=== PATIENT | female | born 1970 | race Hispanic/Latino ===

== ENCOUNTER 2018-12-10 21:35 | Inpatient (IN) | payer BC, SELFPAY ==
[2018-12-10 22:30] LABS: #Eosinphils 0.1 thou/uL (0.0-0.7); #Lymphocytes 1.5 thou/uL (1.20-3.40); #Monocytes 0.3 thou/uL (0.11-0.59); #Neutrophils 4.6 thou/uL (1.40-6.50); %Basophils 0.5 % (0.0-1.0); %Lymphocytes 23.1 % (21.0-51.0); %Monocytes 4.8 % (0.0-10.0); %Neutrophils 69.7 % (42.0-75.0); Hemoglobin 14.8 g/dL (12.0-16.0); MDiff Complete? YES; Macrocytosis SLIGHT = 6-15 cells (100X) (0-5/hpf); Mean Corpuscular HGB CONC 35.9 g/dL (32.0-36.0); Mean Platelet Volume 6.7 fL (7.4-10.4); Platelet Count 217 thou/uL (130-400); Platelet Morphology Comment Appears Adequate; RBC Distribution Width 12.3 % (11.5-14.5); White Blood Cell (WBC) Count 6.6 thou/uL (4.8-10.8)
[2018-12-10] MEDS ORDERED: Morphine 10 MG/ML VIAL ONE (22:41)
[2018-12-10 22:44] LABS: ALT (SGPT) 32 U/L (8-55); AST (SGOT) 94 U/L (5-34); Acetaminophen Less than 6.0 mcg/mL (10.0-30.0); Albumin 3.8 g/dL (3.5-5.0); Alcohol 190 mg/dL (Less than 10); Alkaline Phosphatase 109 U/L (40-110); Anion Gap 14 mmol/L (10-20); BUN (Urea Nitrogen) 9 mg/dL (7.0-18.7); Bilirubin, Total 0.5 mg/dL (0.2-1.2); Calc. Creatinine Clearance 0 mL/min (70-130); Calcium 8.1 mg/dL (7.8-10.44); Carbon Dioxide 21 mmol/L (22-29); Chloride 108 mmol/L (98-107); Estimated GFR-MDRD Greater than 90; Globulin 3.2 g/dL (2.4-3.5); Glucose 99 mg/dL (70-105); Salicylate Less than 8.0 mg/dL (15.0-30.0); Sodium 140 mmol/L (136-145)
--- NOTE | 2018-12-10 22:49 | CT ---
NONCONTRAST CT HEAD: 12/10/18 HISTORY: Patient fell backwards at baseball field from second set of bleachers. Head injury. Loss of conscious ness. COMPARISON: None. FINDINGS: There is increased density in the left frontal lobe and just superior to the level of the Sylvian fis sure related to subarachnoid hemorrhage. A small amount of subarachnoid hemorrhage is also seen near the vertex in the left frontal lobe. No additional intraparenchymal or extra-axial hemorrhage is appr eciated. There is no mass effect or midline shift present. Ventricular system is normal in sized, shape and position. There is no acute infarction identified. There is scalp soft tissue swelling seen in the left lateral frontoparietal region. No underlying sabine varial fracture is seen. The visualized mastoid air cells are clear. There is a tiny air fluid level in the right maxillary an trum and the right sphenoid sinus with mucosal thickening in the ethmoidal air cells. IMPRESSION: 1. Subarachnoid hemorrhage left cerebral hemisphere as described above. 2. Scalp hematoma left frontoparietal region. 3. Tiny amount of fluid in the visualized right maxillary antrum and sphenoid sinus. Above findings discussed with Dr. Whiting in the Emergency Department on 12/10/18 at 22:37 hours. POS: OFF
--- NOTE | 2018-12-10 22:52 | CT ---
NONCONTRAST CT CERVICAL SPINE: 12/10/18 HISTORY: Fell and patient fell backwards at baseball field from second set of bleachers. Head injury. Loss of consciousness. TECHNIQUE: Contiguous axial CT images are obtained through the cervical spine from the skull to the T1-2 level. Sagittal and coronal reformat images are provided. There are mild degenerative changes at C5-6 level. Vertebral body heights are within normal limits. No fracture or subluxation involving the cervical s pine. The prevertebral soft tissues are within normal limits. The visualized lung apices are clear. A mildly displaced fracture of the left clavicle is seen on the logistic manager image. IMPRESSION: 1. No fracture or subluxation involving the cervical spine. 2. Left clavicle fracture. POS: OFF
[2018-12-10 23:09] LABS: PTT 26.9 SEC (22.9-36.1); Prothrombin Time 12.7 SEC (12.0-14.7)
[2018-12-10] MEDS ORDERED: Promethazine HCl 25 MG/ML VIAL IM/IV PRN (23:25)
[2018-12-10] MEDS ORDERED: Dextrose 50% Abboject 50 ML SYRINGE SLOW IVP PRN (23:25)
[2018-12-10] MEDS ORDERED: Morphine 2 MG/ML SYRINGE SLOW IVP PRN (23:25)
[2018-12-10] MEDS ORDERED: Ondansetron PF 4 MG/2 ML Vial IVP PRN (23:25)
[2018-12-10] MEDS ORDERED: hydrALAZINE 20 MG/ML VIAL SLOW IVP PRN (23:25)
[2018-12-10] MEDS ORDERED: Dextrose 5% in Water 1,000 ML IV PRN (23:25)
[2018-12-10] MEDS ORDERED: traMADol HCl 50 MG TAB PO PRN ×2 (23:30)
[2018-12-11 00:33] LABS: Bacteria/HPF None Seen HPF (None Seen); Bilirubin Negative (Negative); Blood, Urine 1+ (Negative); Clarity Clear (Clear); Glucose, Urine (Dipstick) Normal (Negative); Leukocyte Negative Leu/uL (Negative); Nitrite Negative (Negative); Protein, Urine (Dipstick) Negative (Neg-Trace); Squamous Epithelial 0-3 HPF (0-3); Urobilinogen Normal mg/dL (Less than 2); WBC/HPF 0-3 HPF (0-3)
[2018-12-11 00:34] LABS: Pregnancy Test - Urine (BHCG) Negative (Negative); Pregu Control Background? CLEAR/WHITE (CLR/WHITE); Pregu Control Bar Appear? YES (CONTROL BAR); Specific Gravity 1.014 (1.002-1.036)
[2018-12-11 01:04] LABS: Amphetamine Not Detected (NotDetected); Barbiturates Screen Not Detected (NotDetected); Benzodiazepine Screen Detected (NotDetected); Cocaine Metabolite Screen Not Detected (NotDetected); Medtox Control Line Valid? VALID (VALID); Medtox Reader # READER 4; Methadone Not Detected (NotDetected); Methamphetamine Not Detected (NotDetected); Opiate Screen Detected (NotDetected); Oxycodone Screen Not Detected (NotDetected); Phencyclidine (PCP) Not Detected (NotDetected); THC/Cannabinoid Screen Not Detected (NotDetected); Tricyclic Screen Detected (NotDetected)
--- NOTE | 2018-12-11 02:17 | HP ---
TRAUMA SURGEON: Alex Wilkins MD CONSULTING PHYSICIANS: 1. Aryan Salazar MD, Neurosurgery. 2. Marques Gunter MD, Orthopedic Surgery. HISTORY OF PRESENT ILLNESS: The patient is a 48-year-old female, who presented to the emergency department via EMS after a fall from the second step of bleachers. The patient reported she got up with her family to change locations and she fell. She did have a loss of consciousness. Denies anticoagulation use. She has been drinking beer today. She was able to ambulate to the ambulance after a brief loss of consciousness. She reported head pain, neck pain, and left-sided clavicular pain on my evaluation. GCS was 15. Gross motor and sensation were intact. She denied numbness and tingling in her left upper extremity. Denied weakness in her extremities. REVIEW OF SYSTEMS: All additional 10-point review of systems negative except as indicated above. PAST MEDICAL HISTORY: Graves disease, status post thyroidectomy, sciatica and depression. MEDICATIONS: 1. Levothyroxine. 2. Zoloft. 3. Flexeril. PAST SURGICAL HISTORY: Thyroidectomy in 2007, appendectomy, and cholecystectomy. SOCIAL HISTORY: The patient reports drinking daily. She drinks about 5 ounces of alcohol. However, this evening she was drinking beers, reports vaping daily. No recent history of drug use. ALLERGIES: NO KNOWN DRUG ALLERGIES. PHYSICAL EXAMINATION: PRIMARY SURVEY: Airway intact. Adequate breath sounds bilaterally. 2+ pulses in the bilateral radials, femorals, and DPs. GCS 15. Gross motor and sensation are intact. No lacerations, bruising, or external bleeding. SECONDARY SURVEY: HEAD: Normocephalic and atraumatic. No gross palpable skull deformities or tenderness. EYES: Pupils 3-2, equal, round, reactive to light bilaterally. ENT: No hemotympanum. No epistaxis. No septal hematoma. Midface stable to manipulation. No blood in the oropharynx. Dentition is intact. No anterior neck injury/crepitus/tenderness. C-SPINE: No step-offs or deformity, tenderness, C-collar in place. CHEST: Left-sided clavicular tenderness with mild swelling. No abrasions or ecchymosis noted. Equal chest movement. ABDOMEN: Soft, nontender, nondistended. PELVIS: Stable to palpation, nontender. No abrasions or ecchymosis. RECTAL: Deferred. GENITOURINARY: Deferred. EXTREMITIES: No gross deformities. No abrasions or ecchymosis noted. 2+ pulses in bilateral radials, femorals, and DPs. BACK/SPINE: No step-offs or deformities. No tenderness to palpation of the thoracic or lumbar spine. No abrasions or ecchymosis noted. NEUROLOGIC: 5/5 strength in bilateral lifter/driver, plantar flexion, and dorsiflexion. Gross normal sensation x4 extremities. LABORATORY FINDINGS: White count 6.6, hemoglobin 14.8, hematocrit 41.3, platelets 217. INR 1.0. Sodium 140, potassium 3.0, chloride 108, carbon dioxide 21, BUN 9, creatinine 0.64, glucose 99, phosphorus 3.0, magnesium 2.0. UA negative. Urine negative. Plasma alcohol 190. DIAGNOSTIC FINDINGS: CT of the brain demonstrates left frontal subarachnoid hemorrhage. CT of the C-spine demonstrates no acute abnormality. Chest x-ray and x-ray of the left clavicle are pending. ASSESSMENT: 1. Status post fall from second step on bleachers. 2. Left frontal subarachnoid hemorrhage. 3. Left clavicle fracture. 4. Acute alcohol intoxication. 5. Acute hypokalemia. 6. History of Graves disease, depression, and sciatica. PLAN: The patient will be admitted to the [facility] for q.2 hours neuro checks. The patient will receive a repeat head CT in the morning. Dr. Salazar has been consulted and will see the patient. We will closely monitor her GCS and consider rescanning if there is a decline. She will also receive 1 L of LR in the emergency department followed by maintenance IV fluids. She will be n.p.o. We will follow up formal reads of the chest x-ray and clavicular x-ray. We will consult Orthopedic Surgery in the morning for the left clavicle fracture. In the meantime, we will place her in a sling and she will be nonweightbearing. Due to her daily alcohol use, we will start the patient on Serax tomorrow along with folic acid, thiamine and multivitamins. The patient also had C-spine tenderness. She is intoxicated, so we will re-evaluate her cervical spine tomorrow when she is sober and has received pain medications. This patient was discussed with Dr. Wilkins before this dictation. Job ID: [id number]
[2018-12-11] MEDS: Acetaminophen 1,000 MG in Premix Bag 1 BAG IVPB SCH ×2 (05:32→09:49)
[2018-12-11] MEDS: Sodium Chloride 0.9% 1,000 ML IV SCH ×2 (05:39→09:49)
[2018-12-11 06:15] VITALS: BMI 41.9
[2018-12-11 06:17] VITALS: BP 141/98
--- NOTE | 2018-12-11 08:18 | CON ---
DATE OF CONSULTATION: 12/11/2018 This is Aurelia Greenwood PA-C dictating a report for Marques Gunter MD. REQUESTING PHYSICIAN: Trauma Services. CONSULTING PHYSICIAN: Marques Gunter MD REASON FOR CONSULTATION: Left clavicle fracture. HISTORY OF PRESENT ILLNESS: This is a 48-year-old female, who presented to the Emergency Department by way of EMS after a fall from the second step of some bleachers while watching her son's baseball game. She states that she slipped on a jalapeno that fell off her nachos. The patient denied any loss of consciousness, but workup in the Emergency Department revealed a left clavicle fracture. We have been consulted for this reason. Currently at bedside, she reports pain with some movement of the left upper extremity. States that she is left-hand dominant. Denies any numbness or tingling. Denies any other orthopedic complaints at this time. PAST MEDICAL HISTORY: Significant for Graves disease, status post thyroidectomy, sciatica, and depression. PAST SURGICAL HISTORY: Thyroidectomy in 2007, appendectomy, and cholecystectomy. 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 She reports drinking alcohol daily. She also vapes daily. No recent history of drug use. ALLERGIES: NO KNOWN DRUG ALLERGIES. FAMILY HISTORY: Noncontributory. REVIEW OF SYSTEMS: A 10-point review of systems conducted and otherwise negative except for stated above. PHYSICAL EXAMINATION: VITAL SIGNS: Temperature 96.9, pulse of 112, respiratory rate of 19, O2 saturation of 97% on room air, and blood pressure of 141/98. GENERAL: The patient is awake and alert. She is in no apparent distress. She is currently in the IMCU and lying supine in bed. She has a sling to the left upper extremity. She is in no apparent distress. Pleasant and cooperative with exam today. HEENT: Head is normocephalic and atraumatic. NECK: Supple. Trachea midline. Breathing nonlabored. EXTREMITIES: The left upper extremity was evaluated. There is a sling noted. The patient is able to move her shoulder, elbow, and wrist without any difficulty. She is tender to palpation over the left clavicle. Skin is intact overlying the fracture site. No ecchymosis or lesions on the skin noted. Distal neurovascular status intact. Handgrip is 5/5. Other extremities were evaluated, no obvious injuries or deformities are noted. RADIOGRAPHIC IMAGING: Reviewed today including clavicle x-rays on the left side show a minimally displaced midshaft clavicle fracture. No evidence of shortening. These were reviewed with Dr. Gunter. ASSESSMENT: Left clavicle fracture status post fall. PLAN: At this time, our plan is to be nonsurgical. X-ray show minimal displacement with no evidence for shortening. We will plan to treat her in a sling. She may remove this while sleeping, if she is comfortable. She will wear while she is up and moving around. She currently states she really does not have much pain and is able to move her arm about. I advised no overhead motions and no lifting with this arm while we allowed it to heal. She will follow up in Orthopedic Clinic in 3 to 4 weeks for followup evaluation and new x-rays. Plan of care was discussed with the patient at this time and she verbalized understanding. Job ID: [id number]
[2018-12-11] MEDS ORDERED: Famotidine 20 MG TAB PO SCH (09:00)
[2018-12-11] MEDS ORDERED: Polyethylene Glycol 3350 17 GM Packet PO SCH (09:00)
[2018-12-11] MEDS ORDERED: Oxazepam 10 MG CAP PO SCH (09:00)
[2018-12-11] MEDS ORDERED: Multivitamin W/ Minerals 1 TAB PO SCH (09:00)
[2018-12-11] MEDS ORDERED: Senokot S 8.6-50 MG TAB PO SCH (09:00)
[2018-12-11] MEDS ORDERED: Folic Acid 1 MG TAB PO SCH (09:00)
[2018-12-11] MEDS ORDERED: Thiamine 100 MG TAB PO SCH (09:00)
[2018-12-11] MEDS ORDERED: Famotidine/PF 20 mg/2ml Vial SLOW IVP SCH (09:00)
--- NOTE | 2018-12-11 09:01 | RAD ---
LEFT CLAVICLE TWO VIEWS: HISTORY: Left chest pain post trauma. FINDINGS: There is a mildly oblique fracture involving the middle one-third of the left clavicle with plate sep aration of the fracture fragments. No additional fracture is seen. A cervical spine collar overlies t he visualized cervical spine. IMPRESSION: Obliquely oriented, mildly fracture middle one-third left clavicle. POS: OFF
--- NOTE | 2018-12-11 09:02 | RAD ---
PORTABLE AP CHEST: Date: 12/10/18 HISTORY: Left chest pain post trauma. FINDINGS: Cervical spine collar overlies the upper chest. Cardiac silhouette and pulmonary vasculature are with in normal limits. Lungs are clear without pneumothorax or pleural effusion identified. There is no co nsolidation seen. There is an obliquely oriented fracture involving the middle 1/3 left clavicle. IMPRESSION: 1. No acute cardiopulmonary process. 2. Fracture left clavicle. POS: OFF
[2018-12-11] MEDS ORDERED: Cyclobenzaprine 10 MG TAB PO PRN (09:15)
--- NOTE | 2018-12-11 09:38 | CT ---
PRELIMINARY REPORT/[facility]/EMERGENCY AFTER HOURS PROCEDURE: PROCEDURE INFORMATION: Exam: CT Head Without Contrast Exam date and time: 12/11/2018 4:44 AM Clinical history: 48 years old, female; Condition or disease; Patient HX: F/u traumnatic brain injury , sah TECHNIQUE: Imaging protocol: Computed tomography of the head without contrast. COMPARISON: CT Brain WO Con 12/10/2018 10:24 PM FINDINGS: Brain: Unchanged small volume of subarachnoid hemorrhage along the left convexity. No mass effect or midline shift. Ventricles: No ventriculomegaly. Bones/joints: No acute fracture. Sinuses: Trace bilateral maxillary and sphenoid sinuses fluid. Mastoid air cells: Visualized mastoid air cells are well aerated. Soft tissues: Left left convexity scal hematoma. IMPRESSION: No significant interval change. Thank you for allowing us to participate in the care of your patient. Dictated and Authenticated by: Elle Wood MD 12/11/2018 5:37 AM Central Time ([place] & [place]) FINAL REPORT CT BRAIN WITHOUT CONTRAST: Date: 12/11/18 IMPRESSION: I agree with the preliminary report given by Maria Del Rosario. POS: [facility]
[2018-12-11] MEDS: traMADol HCl 50 MG TAB PO SCH ×2 (09:53→15:24)
--- NOTE | 2018-12-11 10:34 | CON ---
DATE OF CONSULTATION: 12/11/2018 SUBJECTIVE: The patient is seen and examined. I agree with Glenda Richardson's evaluation of 12/10/2018. The patient is a 48-year-old woman, who fell last night. CT scan reveals left perisylvian traumatic subarachnoid hemorrhage. This is stable on followup CT scan. She has other orthopedic injuries. OBJECTIVE: NEUROLOGIC: The patient is neurologically intact. IMPRESSION AND PLAN: Traumatic subarachnoid hemorrhage, stable clinically and radiographically. She can be mobilized for dismissal. No neurosurgical intervention is planned. I will arrange a 4-week followup head CT. Job ID: [id number]
--- NOTE | 2018-12-11 10:44 | CON ---
DATE OF CONSULTATION: 12/11/2018 HISTORY OF PRESENT ILLNESS: The patient is a 48-year-old female, who presented to the emergency department per EMS after a mechanical fall on a set of bleachers. The patient did have positive LOC at that time. She was evaluated in the ER with a noncontrast CT of the head which is notable for a small area of traumatic subarachnoid hemorrhage in the left frontoparietal region as well as the left sylvian fissure. There is no mass effect or midline shift. CT of her cervical spine was negative for acute injuries, but she was complaining of some pain initially, so she was, therefore, placed in an [place] collar. She denied any anticoagulant use. The patient was intoxicated during the event, but otherwise had a GCS of 15, and gross motor and sensation were intact. The repeat CT this morning is stable, just slight evolution of the prior bleed. This morning, she is also nontender over the neck and has no complaints of neck pain. She was additionally found to have a left clavicle fracture, and she was placed in a sling, and Orthopedics has been consulted for this injury. PAST MEDICAL HISTORY: Graves disease, status post thyroidectomy; depression; and chronic back pain. PAST SURGICAL HISTORY: Thyroidectomy, appendectomy, and cholecystectomy. SOCIAL HISTORY: The patient is a daily drinker. She drinks approximately 5 ounces of EtOH daily. She uses e-cigarettes. She does not use any drugs. ALLERGIES: NO KNOWN DRUG ALLERGIES. PHYSICAL EXAMINATION: VITAL SIGNS: This morning, temperature is 97.8, heart rate is 112, respirations are 19, she is 97% on room air, BP is 141/98. HEENT: Head, normocephalic and atraumatic. Eyes; PERRLA. Extraocular movements are intact. ENT; oral mucosa is pink, intact, and moist. She has normal voice. NECK: Cervical collar is in place. I removed this. She had no tenderness of the C-spine. No meningismus or nuchal rigidity. Therefore, the C-collar was removed. CARDIAC: Regular rate and rhythm. CHEST: Symmetric chest expansion. No evidence of dyspnea. MUSCULOSKELETAL: She is tender over the left clavicle region, but otherwise has free active range of motion of all extremities. Symmetric pulses. No obvious deformities in the distal extremities. BACK: Nontender to palpation. NEUROLOGIC: A and O x4. No focal neurologic deficits are appreciated. ASSESSMENT AND PLAN: This is a 48-year-old female, status post mechanical fall, who was found to have a traumatic subarachnoid hemorrhage in the left frontoparietal region as well as along the left sylvian fissure. This is stable on followup CT imaging. Additionally, this morning, she has no complaints of neck pain. Her CT of her cervical spine was negative, and I have cleared her cervical collar at approximately 7 a.m., this morning. At this point, Neurosurgery has no plans for acute neurosurgical intervention. The patient should avoid any anticoagulants, aspirin, and NSAIDs. Plan should be to advance her diet and mobilize appropriately to dismissal to home as long as there are no plans for acute surgical intervention with her clavicle with Orthopedics. Please reach out to Neurosurgery for additional questions or concerns. Job ID: [id number]
[2018-12-11 11:36] VITALS: TEMP 97.2
[2018-12-11] MEDS ORDERED: Acetaminophen 500 MG TAB PO SCH (12:00)
[2018-12-11] MEDS ORDERED: Gabapentin 300 MG CAP PO SCH (15:00)
--- NOTE | 2018-12-11 20:36 | DIS ---
DATE OF ADMISSION: 12/11/2018 DATE OF DISCHARGE: 12/11/2018 This is Maribel Veram NP dictating a report for Edouard Woodard DO. DISCHARGE ATTENDING: Edouard Woodard DO ADMITTING ATTENDING: Alex Wilkins MD CONSULTS: 1. Neurosurgery, Dr. Salazar. 2. Orthopedic surgery, Dr. Gunter. PROCEDURES: 1. On 12/10/2018, brain CT demonstrates left frontal subarachnoid hemorrhage. CT of C-spine demonstrates no acute abnormality. Chest x-ray, impression, no acute cardiopulmonary process. There is an obliquely oriented fracture involving the middle 1/3 left clavicle. 2. Clavicle x-ray, obliquely oriented, mildly fracture middle 1/3 left clavicle. 3. Repeat brain CT on 12/11/2018, impression, unchanged small volume of subarachnoid hemorrhage along the left convexity. No mass effect or midline shift. PRIMARY DIAGNOSES: 1. Status post fall from 2nd step on bleachers, left frontal subarachnoid hemorrhage, stable. 2. Left clavicle fracture. 3. Acute alcohol intoxication. 4. Hypokalemia, resolved. SECONDARY DIAGNOSES: Graves disease, depression, sciatica. DISCHARGE MEDICATIONS: 1. Flexeril 10 mg p.o. 3 times a day as needed, #30. 2. Gabapentin 300 mg p.o. 3 times a day as needed, #30. 3. Tramadol 50 mg 1-2 tablets as needed for pain. 4. Xanax 0.5 mg p.o. as needed. 5. Synthroid 150 mcg p.o. daily. 6. MiraLAX as needed. 7. Zoloft 100 mg p.o. daily. 8. Ambien 10 mg p.o. at bedtime as needed. DISCONTINUED MEDICATIONS: There were no discontinued medications. HISTORY OF PRESENT ILLNESS AND HOSPITAL COURSE: This is a 48-year-old female, who presented to the emergency room via EMS after a fall from a 2nd step on bleachers. The patient did have a positive loss of consciousness. The patient denies any long-term anticoagulation use. The patient does admit to drinking daily and admit to drinking several beers before the accident. The patient was able to ambulate to the ambulance after she had the brief loss of consciousness after falling. The patient did report some head pain and neck pain and left-sided clavicle pain. The patient's GCS remained 15 in the emergency room and during her hospital course. The patient's motor and sensation remained intact in all extremities. The patient was admitted to the [facility] for frequent neuro checks. Neurosurgery was consulted and also Orthopedic Surgery was consulted. The patient was started on Serax due to her daily alcohol use along with folic acid, thiamine, and multivitamins. The patient's repeat CT scan this morning was stable. On the day of discharge, the patient was examined by Dr. Woodard. The patient had moderate amount of left clavicle pain and the patient's pain regimen was increased. The patient was able to tolerate a regular diet and the patient was able to ambulate without any dizziness or complications. The patient's vital signs were stable on the day of discharge and the patient's exam including cardiopulmonary, GI, neuro exam was unremarkable. The patient was deemed stable for discharge home. The patient was given head injury instructions and was told to refrain from working for approximately 2 to 3 weeks. The patient has been instructed to avoid alcohol use and NSAID use. DISPOSITION: Stable. DISCHARGE INSTRUCTIONS: 1. Location: Home. 2. Diet: Regular diet. 3. Activity: Orthopedic limitations, nonweightbearing, do not raise left arm, sling when up ambulating, may remove sling at night for sleeping. 4. Followup: Follow up with Dr. Salazar in 3 to 4 weeks with a repeat head CT. Follow up with Dr. Gunter in 3 to 4 weeks as directed. Follow up with primary care physician as needed. No need to follow up with Trauma Services. Please call for any questions. Job ID: [id number]
--- NOTE | 2018-12-16 21:45 | PQF ---
Sana Yang VINCENT U [id number] CLINICAL DOCUMENTATION CLARIFICATION FORM: POST DISCHARGE Addendum to original discharge summary date: ____ Late entry note date: __ DATE: 12/16/18 ATTN: Edouard Woodard Please exercise your independent, professional judgment in responding to the clarification form. Clinical indicators are provided on the bottom of this form for your review Please check appropriate box(s): Duration [ x] Concussion with loss of consciousness (30 min or less) [ ] Concussion with loss of consciousness (31 min to 59 min) [ ] Concussion with loss of consciousness (1 hour to 5 hours 59 min) [ ] Concussion with loss of consciousness (6 hours to 24 hours) [ ] Concussion with loss of consciousness (>24 hours with return to pre- existing conscious level) [ ] Concussion with loss of consciousness (>24 hours without return to pre- existing conscious level) [ ] Concussion with loss of consciousness (>24 hours with return to pre- existing conscious level with patient surviving) [ ] Concussion with loss of consciousness (Any duration with due to brain injury prior to regaining consciousness) [ ] Other diagnosis [ ] Unable to determine For continuity of documentation, please document condition throughout progress notes and discharge summary. Thank You. CLINICAL INDICATORS - SIGNS/ SYMPTOMS / LABS H&P p1 12/11 presented to ED via EMS after a fallf rom second step of bleachers H&P p1 12/11 She did have a loss of consciouness H&P p1 12/11 She reported head pain, neck pain and left-sided clavicular pain H&P p1 12/11 GCS of 15 H&P p1 12/11 CT of brain demonstrates left frontal subarachnoid hemorrhage RISK FACTORS H&P p3 12/11 Left frontal subarachnoid hemorrhage H&P p3 12/11 s/p fall from second step on bleachers TREATMENTS: H&P p3 12/11 admitted to [facility] for q2 neuro check H&P p3 12/11 receive 1L of LR (This form is maintained as a part of the permanent medical record) 2014 [employer]. All Rights Reserved [email or web address] [not provided] MTDD
--- NOTE | 2018-12-16 21:50 | PQF ---
Sana Yang VINCENT U [id number] CLINICAL DOCUMENTATION CLARIFICATION FORM: POST DISCHARGE Addendum to original discharge summary date: ____ Late entry note date: __ DATE: 12/16/18 ATTN: Vance Hastings Vincent Please exercise your independent, professional judgment in responding to the clarification form. Clinical indicators are provided on the bottom of this form for your review Please check appropriate box(s): BMI > 40 with associated diagnosis of: (check one) [X ] Morbid (Severe) Obesity [ ] Due to excess calories [ ] with Alveolar Hypoventilation (Pickwickian syndrome) [ ] Overweight [ ] Obesity [ ] Other diagnosis [ ] Unable to determine In addition, please specify: Present on Admission (POA): [ x ] Yes [ ] No [ ] Unable to Determine For continuity of documentation, please document condition throughout progress notes and discharge summary. Thank You. BMI < 18.5Under weight = 18.5 - 24.9Healthy = 25.0 - 29.9Slightly Overweight = 30.0 - 34.9Obese/Class I = 35.0 - 39.9Severely Obese/Class II = 40.0 and OverMorbidly Obese/Class III CLINICAL INDICATORS - SIGNS / SYMPTOMS / LABS Info : BMI of 41.9kg.m2 H&P p1 12/11 presented to ED via EMS after a fall from second step of bleachers RISK FACTORS H&P p1 12/11 48-year-old Female H&P p1 12/11 Graves disease H&P p1 12/11 s/p thyroidectomy H&P p1 12/11 depression TREATMENTS: Discharge summary p2 12/11 Regular diet (This form is maintained as a part of the permanent medical record) 2014 [employer]. All Rights Reserved [email or web address] [not provided] MTDD
== END 2018-12-11 16:03 | disposition home or self-care (01) | DRG 86 ==
LOC: ERS 21:35 → OBSVTOIN 12-11 04:30 → IMCU/EMU 12-11 04:30
PROVIDERS: ADMIT Specialist; ATTEND Specialist
DX: S06.6X1A Traumatic subarachnoid hemorrhage with loss of consciousness of 30 minutes or less, initial encounter (principal); Z68.41 Body mass index [BMI] 40.0-44.9, adult; E66.01 Morbid (severe) obesity due to excess calories; E05.00 Thyrotoxicosis with diffuse goiter without thyrotoxic crisis or storm; E89.0 Postprocedural hypothyroidism; M54.30 Sciatica, unspecified side; E87.6 Hypokalemia; F10.129 Alcohol abuse with intoxication, unspecified; S42.022A Displaced fracture of shaft of left clavicle, initial encounter for closed fracture; F32.9 Major depressive disorder, single episode, unspecified; R40.2412 Glasgow coma scale score 13-15, at arrival to emergency department; W01.198A Fall on same level from slipping, tripping and stumbling with subsequent striking against other object, initial encounter; Y92.320 Baseball field as the place of occurrence of the external cause; Z79.899 Other long term (current) drug therapy; Z79.890 Hormone replacement therapy; Z90.49 Acquired absence of other specified parts of digestive tract
CPT/HCPCS: 36415; 70450; 71045; 72125; 80053; 80306; 80307; 81003; 81015; 81025; 83735; 84100; 84443; 85025; 85610; 85730; 93005; 96361; 96374; G0390; J0131; J2270; J7050

== ENCOUNTER 2020-08-28 12:04 | Emergency (ER) | payer SELFPAY ==
[2020-08-28 12:48] LABS: #Eosinphils 0.4 thou/uL (0.0-0.7); #Lymphocytes 0.9 thou/uL (1.20-3.40); #Monocytes 0.3 thou/uL (0.11-0.59); #Neutrophils 3.6 thou/uL (1.40-6.50); %Basophils 0.6 % (0.0-1.0); %Eosinophils 7.2 % (0.0-10.0); %Lymphocytes 17.3 % (21.0-51.0); %Monocytes 6.3 % (0.0-10.0); %Neutrophils 68.6 % (42.0-75.0); Hemoglobin 15.4 g/dL (12.0-16.0); Mean Corpuscular HGB CONC 33.5 g/dL (32.0-36.0); Mean Corpuscular Hemoglobin 36.2 pg (27.0-31.0); Mean Platelet Volume 6.6 fL (7.4-10.4); Platelet Count 246 thou/uL (130-400); RBC Distribution Width 13.2 % (11.5-14.5); Red Blood Cell (RBC) Count 4.26 mill/uL (4.20-5.40); White Blood Cell (WBC) Count 5.3 thou/uL (4.8-10.8)
[2020-08-28 13:02] LABS: MDiff Complete? YES; Macrocytosis SLIGHT = 6-15 cells (100X) (0-5/hpf); Platelet Morphology Comment Appears Adequate
[2020-08-28 13:06] LABS: ALT (SGPT) 8 U/L (8-55); AST (SGOT) 15 U/L (5-34); Albumin 3.9 g/dL (3.5-5.0); Alkaline Phosphatase 119 U/L (40-110); Anion Gap 11 mmol/L (10-20); BUN (Urea Nitrogen) 10 mg/dL (7.0-18.7); Bilirubin, Total 0.8 mg/dL (0.2-1.2); Calc. Creatinine Clearance 0 mL/min (70-130); Calcium 8.6 mg/dL (7.8-10.44); Carbon Dioxide 24 mmol/L (22-29); Chloride 106 mmol/L (98-107); Globulin 3.3 g/dL (2.4-3.5); Glucose 86 mg/dL (70-105); Lipase 20 U/L (8-78); Potassium 3.2 mmol/L (3.5-5.1); Protein, Total 7.2 g/dL (6.0-8.3); Sodium 138 mmol/L (136-145)
== END 2020-08-28 14:00 | disposition home or self-care (01) ==
LOC: ERS 12:04
DX: R07.81 Pleurodynia (principal); E03.9 Hypothyroidism, unspecified; F17.290 Nicotine dependence, other tobacco product, uncomplicated; Z79.899 Other long term (current) drug therapy
CPT/HCPCS: 36415; 71045; 80053; 83690; 84484; 85025; 93005

== ENCOUNTER 2020-11-20 14:51 | Emergency (ER) | payer SELFPAY ==
[~2020-11-20 14:51] MED LIST: Iopamidol-370 76% 500 ML 1 ML ONE
[2020-11-20] MEDS ORDERED: Boostrix 0.5 ML (Tdap) VIAL ONE (15:42)
[2020-11-20 16:12] LABS: #Eosinphils 0.1 thou/uL (0.0-0.7); #Lymphocytes 1.2 thou/uL (1.20-3.40); #Monocytes 0.3 thou/uL (0.11-0.59); #Neutrophils 6.4 thou/uL (1.40-6.50); %Basophils 0.1 % (0.0-1.0); %Eosinophils 1.6 % (0.0-10.0); %Lymphocytes 14.4 % (21.0-51.0); %Monocytes 3.9 % (0.0-10.0); %Neutrophils 79.9 % (42.0-75.0); Hemoglobin 13.8 g/dL (12.0-16.0); Mean Corpuscular HGB CONC 36.3 g/dL (32.0-36.0); Mean Corpuscular Hemoglobin 39.7 pg (27.0-31.0); Mean Platelet Volume 6.5 fL (7.4-10.4); Platelet Count 232 thou/uL (130-400); RBC Distribution Width 13.1 % (11.5-14.5); Red Blood Cell (RBC) Count 3.49 mill/uL (4.20-5.40)
[2020-11-20 16:24] LABS: ALT (SGPT) 9 U/L (8-55); AST (SGOT) 17 U/L (5-34); Albumin 3.7 g/dL (3.5-5.0); Alkaline Phosphatase 102 U/L (40-110); Anion Gap 14 mmol/L (10-20); BUN (Urea Nitrogen) 11 mg/dL (7.0-18.7); Bilirubin, Total 0.8 mg/dL (0.2-1.2); Calc. Creatinine Clearance 0 mL/min (70-130); Calcium 8.5 mg/dL (7.8-10.44); Carbon Dioxide 21 mmol/L (22-29); Chloride 105 mmol/L (98-107); Globulin 3.1 g/dL (2.4-3.5); Glucose 85 mg/dL (70-105); Lipase 15 U/L (8-78); Potassium 3.9 mmol/L (3.5-5.1); Protein, Total 6.8 g/dL (6.0-8.3); Sodium 136 mmol/L (136-145)
[2020-11-20 16:26] LABS: MDiff Complete? YES; Macrocytosis SLIGHT = 6-15 cells (100X) (0-5/hpf); Platelet Morphology Comment Appears Adequate; Polychromasia SLIGHT = 2-3 cells (100X) (0-2/hpf); Spherocytes SLIGHT = 1-5 cells (100X) (None Seen)
== END 2020-11-20 17:29 | disposition home or self-care (01) ==
LOC: ERS 14:51
DX: S20.211A Contusion of right front wall of thorax, initial encounter (principal); E03.9 Hypothyroidism, unspecified; F17.290 Nicotine dependence, other tobacco product, uncomplicated; Z79.899 Other long term (current) drug therapy; V49.40XA Driver injured in collision with unspecified motor vehicles in traffic accident, initial encounter
CPT/HCPCS: 36415; 70450; 70486; 71260; 72125; 74177; 80053; 83690; 85025; 90471; 90715; 93005; Q9967

== ENCOUNTER 2021-06-28 09:11 | Emergency (ER) | payer OTHER, SELFPAY ==
[2021-06-28 10:21] LABS: #Eosinphils 0.1 thou/uL (0.0-0.7); #Monocytes 0.2 thou/uL (0.11-0.59); #Neutrophils 3.4 thou/uL (1.40-6.50); %Basophils 0.8 % (0.0-1.0); %Lymphocytes 20.1 % (21.0-51.0); %Monocytes 4.6 % (0.0-10.0); %Neutrophils 71.5 % (42.0-75.0); Hemoglobin 15.8 g/dL (12.0-16.0); Mean Corpuscular HGB CONC 34.2 g/dL (32.0-36.0); Mean Platelet Volume 6.5 fL (7.4-10.4); Platelet Count 238 thou/uL (130-400); RBC Distribution Width 11.7 % (11.5-14.5); White Blood Cell (WBC) Count 4.7 thou/uL (4.8-10.8)
[2021-06-28] MEDS ORDERED: Triple Antibiotic Oint 1 GM Packet ONE (10:33)
[2021-06-28 10:38] LABS: ALT (SGPT) 23 U/L (8-55); AST (SGOT) 32 U/L (5-34); Albumin 4.1 g/dL (3.5-5.0); Alkaline Phosphatase 75 U/L (40-110); Anion Gap 15 mmol/L (10-20); BUN (Urea Nitrogen) 14 mg/dL (9.8-20.1); Bilirubin, Total 0.7 mg/dL (0.2-1.2); Calc. Creatinine Clearance 0 mL/min (70-130); Calcium 8.8 mg/dL (7.8-10.44); Carbon Dioxide 19 mmol/L (22-29); Chloride 110 mmol/L (98-107); Globulin 3.4 g/dL (2.4-3.5); Glucose 85 mg/dL (70-105); Potassium 3.7 mmol/L (3.5-5.1); Protein, Total 7.5 g/dL (6.0-8.3); Sodium 140 mmol/L (136-145)
[2021-06-28 10:39] LABS: MDiff Complete? YES; Macrocytosis SLIGHT = 6-15 cells (100X) (0-5/hpf); Platelet Morphology Comment Appears Adequate; Polychromasia SLIGHT = 2-3 cells (100X) (0-2/hpf)
== END 2021-06-28 11:20 | disposition home or self-care (01) ==
LOC: ERS 09:11
DX: S91.052D Open bite, left ankle, subsequent encounter (principal); E03.9 Hypothyroidism, unspecified; F17.290 Nicotine dependence, other tobacco product, uncomplicated; Z79.899 Other long term (current) drug therapy; W54.0XXD Bitten by dog, subsequent encounter
CPT/HCPCS: 36415; 80053; 85025; 94760